=== PATIENT | female | born 2000 | race Caucasian/White ===

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

== ENCOUNTER 2019-08-30 23:30 | Emergency (ER) | payer SELFPAY ==
--- NOTE | 2019-08-30 23:37 | ED Physician Documentation ---
PD HPI LOWER EXT INJURY - Stated complaint Stated Complaint: LT LEG PAIN - History obtained from History obtained from: Patient - History of Present Illness PD HPI LOW EXT INJURY LOCATION: Left, Lower leg, Ankle Type of injury: Fall Timing - onset: How many months ago (originally fell and hurt calf muscle Dec 2018 and had ongoing pains with use/prolonged walking, stepping, etc. Hurt it again/worse May 2019 and has seen PCP and Ortho in [place]; was getting PT and has had boot orthosis with wedges for equines position. Initially 4 wedges and is down to 2 now.) Timing - duration: Months Timing - details: Abrupt onset, Still present (slowly stretching and strengthening Gastrocnemeus muscle with PT and exercises. Has had pain and nu mbness into foot/ankle. On Diclofenac, Gabapentin, and Tramadol. Got refill of Gabapentin and her Ortho in [place] wanted her to increase it. Out of Tramadol.) Worsened by: Moving Associated symptoms: Numbness, Swelling (recent travel back from [place] and has some swelling of lower leg, and notes pain has increased up to the popliteal area. Does not have PCP nor Ortho here as yet.). No: Weakness Contributing factors: No: Anticoagulated, Prior ortho surgery (but has been being treated by Ortho for gastroc tear with slow rehab and PT for it.) Review of Systems Constitutional: denies: Fever, Chills Nose: denies: Rhinorrhea / runny nose, Congestion Throat: denies: Sore throat Respiratory: denies: Cough Skin: denies: Rash, Lesions Neurologic: reports: Numbness (into ankle and foot for 3-4 months now). denies: Focal weakness PD PAST MEDICAL HISTORY - Past Medical History Cardiovascular: None Respiratory: None Neuro: None Endocrine/Autoimmune: None GI: GERD Psych: Depression, Anxiety, Bipolar disorder - Past Surgical History Past Surgical History: No - Present Medications Home Medications: Ambulatory Orders Medication Instructions Recorded Confirmed [place] Carbonate 2 cap PO DAILY PM 12/22/17 12/22/17 Lurasidone HCl [Latuda] 20 mg PO DAILY 12/22/17 12/22/17 Omeprazole 20 mg PO DAILY 12/22/17 12/22/17 Sucralfate 1 tab PO BID 12/22/17 12/22/17 Hydrocodone/Acetaminophen [[place] 1 each PO TID PRN #20 tablet 08/31/19 5-325 Tablet] - Allergies Allergies/Adverse Reactions: Allergies Allergy/AdvReac Type Severity Reaction Status Date / Time No Known Drug Allergies Allergy Verified 12/22/17 22:28 - Living Situation Living Situation: reports: With family Living Arrangement: reports: At home - Social History Does the pt smoke?: Yes Smoking Status: Current every day smoker Does the pt drink ETOH?: No Does the pt have substance abuse?: No - Immunizations Immunizations are current?: Yes - POLST Patient has POLST: No PD ED PE NORMAL - Vitals Vital signs reviewed: Yes - General General: Alert and oriented X 3, No acute distress, Well developed/nourished - Derm Derm: Normal color, Warm and dry, No rash - Extremities Extremities: Other (left calf and popliteal area with some tenderness posteriorly. Mild swelling in lower leg and ankle. Does seem to have some muscle atrophy left lower leg c/w disuse. ) - Neuro Neuro: Alert and oriented X 3, No motor deficit Results - Vitals Vitals: Vital Signs - 24 hr 08/30/19 08/31/19 08/31/19 23:30 01:00 01:46 Temperature 36.8 C Heart Rate 94 73 78 Respiratory 18 16 16 Rate Blood Pressure 113/88 H 113/82 H 121/85 H O2 Saturation 100 99 99 Oxygen O2 Source Room air - Rads (name of study) duplex left leg Radiology: Prelim report reviewed (no DVT), See rad report PD MEDICAL DECISION MAKING - ED course Complexity details: considered differential (She is continuing rehab of a gastrocnemius injury of the left leg. She had been having progressive stretching with diminishing number of wedges. She is down to 2 wedges now and was supposed to decrease to 1 but had traveled now back to [place] and had not gotten physical therapy for couple week), d/w patient ED course: She should stay at the current number of wedges in her boot orthosis and not try to stretch it more at this time until she reinitiates physical therapy and evaluation. She should continue her diclofenac. She can increase her gabapentin from 900 mg daily to 1200 mg daily (1 in the morning and afternoon and 2 at night). She had been prescribed tramadol for her pain in mid taking averaging 4-6 6 daily. I think tramadol's not a good medicine overall swell pre scribe her hydrocodone instead. Hopefully she will be able to take less with a more effective medicine and I did tell her this would be intended short-term until initiating with orthopedist and primary care here. Departure - Departure Disposition: 01 Home, Self Care Clinical Impression: Strain of left calf muscle Condition: Stable Record reviewed to determine appropriate education?: Yes Instructions: ED Strain Muscle Ext Follow-Up: Glen Ghosh MD [Provider Admit Priv/Credential] - [facility] [Provider Group] [email or web address] [Provider Group] Prescriptions: Hydrocodone/Acetaminophen [[place] 5-325 Tablet] 1 each PO TID PRN #20 tablet PRN Reason: Pain Comments: Your ultrasound is normal without any signs of blood clots. Continue your current treatment with the partial weightbearing in the boot orthosis with the 2 wedges for now. Continue the diclofenac anti-inflammatory. Increase your gabapentin to 1200 mg daily (300 mg in the morning and afternoon and 600 mg at night). Add Tylenol 500 mg 3 times a day or the hydrocodone if needed for worse pain. Follow-up with the primary care in [place], call for an appointment. Concurrently also call the orthopedic office for follow-up as well and get an appointment at their earliest times available. They will hopefully initiate you on physical therapy again. Discharge Date/Time: 08/31/19 02:01
[2019-08-31] MEDS ORDERED: HYDROcod/ACETAM 5/325 MG TABLET PO STA (00:23)
[2019-08-31 01:52] VITALS: BP 121/85
--- NOTE | 2019-08-31 08:38 | Ultrasound Report ---
PROCEDURE: Duplex Ext Veins Left INDICATIONS: left leg pain; has been in boot/travel TECHNIQUE: Real-time imaging, as well as color and pulse Doppler interrogation, were performed of the lower extr emity deep veins from the inguinal ligament to the popliteal fossa. COMPARISON: None. FINDINGS: The deep veins are normally compressible, and free of intraluminal thrombus. Color and pu lse Doppler demonstrate normal phasic intraluminal flow. There is normal augmentation response to di stal compression maneuver. IMPRESSION: Negative left lower extremity duplex ultrasound for DVT. A preliminary report with the above findings was provided at the time of the study by [facility]. Reviewed by: Ramos Gonzalez MD on 08/31/2019 7:37 AM MEL Approved by: Ramos Gonzalez MD on 08/31/2019 7:37 AM MEL Station ID: [id number]
== END 2019-08-31 02:01 | disposition home or self-care (01) ==
LOC: ED 23:30
DX: S86.912A Strain of unspecified muscle(s) and tendon(s) at lower leg level, left leg, initial encounter (principal); X58.XXXA Exposure to other specified factors, initial encounter; F17.200 Nicotine dependence, unspecified, uncomplicated
CPT/HCPCS: 93971; 99283; 99284; A9270

== ENCOUNTER 2019-11-30 17:47 | Emergency (ER) | payer MEDICAID ==
--- NOTE | 2019-11-30 18:04 | ED Physician Documentation ---
PD HPI LOWER EXT INJURY - Stated complaint Stated Complaint: RT LEG INJ - Chief complaint Chief Complaint: Ext Problem - History obtained from History obtained from: Patient - History of Present Illness PD HPI LOW EXT INJURY LOCATION: Right (Pain in R calf x 2 days. Started while in PT 2 days ago. No particular injury except overuse. Was in PT for L leg, but that is stable since injury 6 months ago.) Review of Systems Constitutional: reports: Reviewed and negative Nose: reports: Reviewed and negative Throat: reports: Reviewed and negative Cardiac: reports: Reviewed and negative PD PAST MEDICAL HISTORY - Past Medical History Cardiovascular: None Respiratory: None Neuro: None Endocrine/Autoimmune: None GI: GERD Psych: Depression, Anxiety, Bipolar disorder - Past Surgical History Past Surgical History: No - Present Medications Home Medications: Ambulatory Orders Medication Instructions Recorded Confirmed [place] Carbonate 2 cap PO DAILY PM 12/22/17 12/22/17 Lurasidone HCl [Latuda] 20 mg PO DAILY 12/22/17 12/22/17 Omeprazole 20 mg PO DAILY 12/22/17 12/22/17 Sucralfate 1 tab PO BID 12/22/17 12/22/17 Hydrocodone/Acetaminophen [[place] 1 each PO TID PRN #20 tablet 08/31/19 5-325 Tablet] Hydrocodone/Acetaminophen 1 - 2 tab PO Q6H PRN #7 tablet 11/30/19 [Hydrocodone-Acetamin 5-325 mg] Ibuprofen [Motrin] 800 mg PO Q8H PRN #30 tablet 11/30/19 - Allergies Allergies/Adverse Reactions: Allergies Allergy/AdvReac Type Severity Reaction Status Date / Time No Known Drug Allergies Allergy Verified 11/30/19 17:55 - Social History Does the pt smoke?: Yes Smoking Status: Current every day smoker Does the pt drink ETOH?: No Does the pt have substance abuse?: No - Immunizations Immunizations are current?: Yes - POLST Patient has POLST: No PD ED PE NORMAL - Vitals Vital signs reviewed: Yes - General General: Alert and oriented X 3, No acute distress - Extremities Extremities: Other (No tenderness of the right knee anteriorly. No effusion. She is tender in the right upper calf and has a positive Homans sign.) - Neuro Neuro: Alert and oriented X 3, Normal speech Results - Vitals Vitals: Vital Signs - 24 hr 09/27/20 17:51 Temperature 36.4 C L Heart Rate 84 Respiratory 16 Rate Blood Pressure 104/71 O2 Saturation 100 Oxygen O2 Source Room air - Rads (name of study) RLE DVT sono Radiology: EMP read contemporaneously (neg for dvt) PD MEDICAL DECISION MAKING - ED course ED course: Presents with history/physical most consistent with a right leg strain from overuse, no evidence of bony injury. Ultrasound done and negative to rule out DVT. Departure - Departure Disposition: 01 Home, Self Care Clinical Impression: Muscle strain, lower leg Qualifiers: Encounter type: initial encounter Laterality: right Qualified Code(s): S86.911A - Strain of unspecified muscle(s) and tendon(s) at lower leg level, right leg, initial encounter Condition: Good Record reviewed to determine appropriate education?: Yes Instructions: ED Strain Muscle Ext Prescriptions: Hydrocodone/Acetaminophen [Hydrocodone-Acetamin 5-325 mg] 1 - 2 tab PO Q6H PRN #7 tablet PRN Reason: Pain Ibuprofen [Motrin] 800 mg PO Q8H PRN #30 tablet PRN Reason: PAIN &/OR FEVER Comments: Start working with her physical therapist on this, return for new or worsening symptoms. We did an ultrasound to make sure it was not a DVT, it was not.
--- NOTE | 2019-11-30 19:23 | Ultrasound Report ---
PROCEDURE: Duplex Ext Veins Right INDICATIONS: RLE pain TECHNIQUE: Real-time imaging, as well as color and pulse Doppler interrogation, were performed of the lower extr emity deep veins from the inguinal ligament to the popliteal fossa. COMPARISON: None. FINDINGS: The deep veins are normally compressible, and free of intraluminal thrombus. Color and pu lse Doppler demonstrate normal phasic intraluminal flow. There is normal augmentation response to di stal compression maneuver. IMPRESSION: No evidence of deep vein thrombosis involving the right lower extremity. Reviewed by: Liz Bowden MD, PhD on 11/30/2019 7:21 PM PDT Approved by: Liz Bowden MD, PhD on 11/30/2019 7:21 PM PDT Station ID: [id number]
[2019-11-30] MEDS ORDERED: HYDROcod/ACET 5/325 Prepack 4 PO STA (19:25)
[2019-11-30 19:59] VITALS: BP 111/69
== END 2019-11-30 19:56 | disposition home or self-care (01) ==
LOC: ED 17:47
DX: S86.811A Strain of other muscle(s) and tendon(s) at lower leg level, right leg, initial encounter (principal); F17.200 Nicotine dependence, unspecified, uncomplicated; X58.XXXA Exposure to other specified factors, initial encounter
CPT/HCPCS: 99283; 99284

== ENCOUNTER 2020-05-02 20:22 | Outpatient (CLI) | payer MEDICAID | END 2020-05-02 20:23 | disposition EMS.NT | LOC: EMS 20:22 | DX: M79.662 Pain in left lower leg (principal); M79.661 Pain in right lower leg ==

== ENCOUNTER 2020-06-30 08:00 | Outpatient (CLI) | payer MEDICAID ==
--- NOTE | 2020-06-30 19:19 | XRAY Report ---
PROCEDURE: Foot 3 View RT INDICATIONS: RIGHT FOOT PAIN TECHNIQUE: 3 views of the foot were acquired. COMPARISON: None FINDINGS: Bones: No fractures or dislocations. No suspicious bony lesions. Soft tissues: No tibiotalar joint effusion. Achilles tendon appears normal. IMPRESSION: No acute finding. Reviewed by: Jovi Baker MD on 06/30/2020 7:18 PM PDT Approved by: Jovi Baker MD on 06/30/2020 7:18 PM PDT Station ID: [id number]
== END 2020-06-30 23:59 | disposition home or self-care (01) ==
LOC: DI.S 08:00
PROVIDERS: ATTEND Physician Assistant Medical
DX: M79.671 Pain in right foot (principal)

== ENCOUNTER 2020-07-03 08:28 | Emergency (ER) | payer MEDICAID ==
[2020-07-03] MEDS ORDERED: DEXAMETHASONE 10 MG/ML VIAL IVP STA (09:10)
[2020-07-03] MEDS ORDERED: SODIUM CHLORIDE 0.9% 1,000 ML IV STA (09:10)
--- NOTE | 2020-07-03 09:18 | ED Physician Documentation ---
History of Present Illness - Stated complaint Stated Complaint: RT/LFT LEG PAIN - Chief complaint Chief Complaint: Ext Problem - History obtained from History obtained from: Patient - History of Present Illness Timing: How many weeks ago (2) - Additonal information Additional information: 19 y/o female with a history of left calf cramping/weakness that started in Dec reports that she has undergone physical therapy for this "injury" from overuse hiking. She continues to have symptoms and reports that she was at bed rest for 5 months before moving to [facility] and starting physical therapy. She has not had imaging done. She reports that physical therapy was successful in improving her ability to walk and she discontinued several months ago and did we ll for about 2 months but recently she has developed symptoms again and they are now in the right foot and the patient has been in to see her primary and has been placed into a splint on the right foot. Review of Systems Constitutional: denies: Fever Eyes: denies: Decreased vision Ears: denies: Ear pain Nose: denies: Congestion Throat: denies: Sore throat Respiratory: denies: Cough GI: denies: Vomiting : denies: Dysuria Skin: denies: Rash Musculoskeletal: reports: Extremity pain. denies: Neck pain, Back pain Neurologic: reports: Focal weakness, Numbness. denies: Generalized weakness, Difficulty speaking, Near syncope, Confused, Altered mental status, Headache, Head injury PD PAST MEDICAL HISTORY - Past Medical History Cardiovascular: None Respiratory: None Neuro: None Endocrine/Autoimmune: None GI: GERD Psych: Depression, Anxiety, Bipolar disorder - Past Surgical History Past Surgical History: No - Present Medications Home Medications: Ambulatory Orders Medication Instructions Recorded Confirmed Cyclobenzaprine [Flexeril] 10 mg PO TID PRN #20 tablet 07/03/20 - Allergies Allergies/Adverse Reactions: Allergies Allergy/AdvReac Type Severity Reaction Status Date / Time No Known Drug Allergies Allergy Verified 07/03/20 08:40 - Social History Does the pt smoke?: Yes Smoking Status: Current every day smoker Does the pt drink ETOH?: No Does the pt have substance abuse?: No - Immunizations Immunizations are current?: Yes - POLST Patient has POLST: No PD ED PE NORMAL - Vitals Vital signs reviewed: Yes (tachy ) - General General: Alert and oriented X 3, No acute distress, Well developed/nourished - HEENT HEENT: Atraumatic, PERRL, EOMI - Respiratory Respiratory: No respiratory distress - Back Back: No CVA TTP, No spinal TTP, Other (There is no significant spasm to the lumbar paraspinous muscles but there is some tenderness to the siatic notch bilaterally. ) - Derm Derm: Normal color, Warm and dry, No rash - Extremities Extremities: No deformity, No edema, Other (No tenderness to the foot, ankle or calf bilaterally. The left calf is 1cm smaller than the right. distal n/v is intact. ) - Neuro Neuro: Alert and oriented X 3, machine hostler 2-12 intact, No motor deficit, No sensory deficit, Normal speech Eye Opening: Spontaneous Motor: Obeys Commands Verbal: Oriented GCS Score: 15 - Psych Psych: Normal mood, Normal affect Results - Vitals Vitals: Vital Signs - 24 hr 07/03/20 07/03/20 08:34 09:29 Temperature 37.2 C Heart Rate 113 H 78 Respiratory 16 16 Rate Blood Pressure 128/69 132/81 H O2 Saturation 99 100 Oxygen O2 Source Room air - Labs Labs: Laboratory Tests 07/03/20 07/03/20 07/03/20 09:18 09:18 09:18 WBC 8.4 RBC 4.57 Hgb 13.7 Hct 41.5 MCV 90.8 MCH 30.0 MCHC 33.0 RDW 12.5 Plt Count 187 MPV 10.5 Neut # (Auto) 5.3 Lymph # (Auto) 2.5 [place] # (Auto) 0.6 Eos # (Auto) 0.0 Baso # (Auto) 0.0 Absolute Nucleated RBC 0.00 Nucleated RBC % 0.0 Sodium 137 Potassium 3.5 Chloride 103 Carbon Dioxide 24 Anion Gap 10.0 BUN 15 Creatinine 0.7 Estimated GFR (MDRD) 107 Glucose 107 H Calcium 9.6 Total Bilirubin 0.8 AST 15 ALT 12 Alkaline Phosphatase 37 L Total Protein 7.6 Albumin 5.0 Globulin 2.6 Albumin/Globulin Ratio 1.9 Lipase 22 TSH 3.78 Procedures - IVC sono (time) 0900 Bedside IVC sono: IVC measures (cm) (1.4), IVC collapsed c insp (cm) (complete), Dehydration (est 500ml deficit.) PD MEDICAL DECISION MAKING - ED course Complexity details: considered differential, d/w patient ED course: 19-year-old female with a year and half long story of lower extremity weakness and paralysis and spasm that has been diagnosis of peripheral musculoskeletal injury does not appear to have responded to appropriate treatment with physical therapy and time. I became concerned for the patient's periodic paralysis and possibility of electrolyte abnormality contributing to this and we taylor blood without findings. She was also found to be minimally dehydrated about the order of morning dehydration and IV fluid was administered. I do not believe this has anything to do with the patient's presentation. I suspect the patient may have spinal stenosis and she is administered dexamethasone 10 mg intravenously and we will refer her back to her primary for advanced imaging. She has some improvement in her ability to flex her toes while in the ED . Departure - Departure Disposition: 01 Home, Self Care Clinical Impression: Bilateral sciatica Condition: Stable Instructions: ED Sciatica Follow-Up: NICOLA RIVERA PA-C [Primary Care Provider] - Prescriptions: Cyclobenzaprine [Flexeril] 10 mg PO TID PRN #20 tablet PRN Reason: Spasms Comments: Today it appears that your weakness and numbness in your leg is likely due to to a problem with your back. Advanced imaging is indicated and an MRI of your back can be ordered by your primary care doctor. Follow-up with Mello Rivera and complete this advanced imaging. Further treatment in the form of steroid, s teroid epidural injection or surgery may be indicated
[2020-07-03 09:28] LABS: BASOPHILS % (AUTO) 0.4 %; EOSINOPHILS % (AUTO) 0.5 %; HCT - HEMATOCRIT 41.5 % (37.0-47.0); HGB - HEMOGLOBIN 13.7 g/dL (12.0-16.0); LYMPHOCYTES # (AUTO) 2.5 10^3/uL (1.5-3.5); LYMPHOCYTES % (AUTO) 29.3 %; MEAN CORPUSCULAR VOLUME 90.8 fL (81.0-99.0); MEAN PLATELET VOLUME 10.5 fL (7.9-10.8); MONOCYTES # (AUTO) 0.6 10^3/uL (0.0-1.0); NEUTROPHILS # (AUTO) 5.3 10^3/uL (1.5-6.6); NEUTROPHILS % (AUTO) 62.7 %; PLT - PLATELET COUNT 187 10^3/uL (130-450); RED BLOOD COUNT 4.57 10^6/uL (4.20-5.40); RED CELL DISTRIBUTION WIDTH 12.5 % (12.0-15.0); WHITE BLOOD COUNT 8.4 x10^3/uL (4.8-10.8)
[2020-07-03 09:39] LABS: ALBUMIN/GLOBULIN RATIO 1.9 (1.0-2.2); BILIRUBIN,TOTAL 0.8 mg/dL (0.2-1.0); CALCIUM 9.6 mg/dL (8.5-10.3); CREATININE 0.7 mg/dL (0.4-1.0); POTASSIUM 3.5 mmol/L (3.5-5.0); TOTAL PROTEIN 7.6 g/dL (6.7-8.2)
[2020-07-03 10:40] VITALS: BP 138/77
[2020-07-03 10:51] LABS: BILIRUBIN,URINE NEGATIVE (NEGATIVE); GLUCOSE, URINE (UA) NEGATIVE (NEGATIVE); KETONES,URINE (UA) 15 mg/dL (NEGATIVE); LEUKOCYTE ESTERASE, URINE NEGATIVE (NEGATIVE); NITRITE,URINE NEGATIVE (NEGATIVE); OCCULT BLOOD,URINE NEGATIVE (NEGATIVE); PH,URINE 5.5 PH (5.0-7.5); PROTEIN,URINE NEGATIVE (NEGATIVE); UROBILINOGEN,URINE 0.2 (NORMAL) E.U./dL (NORMAL)
[2020-07-03 10:52] LABS: CLARITY,URINE CLEAR (CLEAR)
[2020-07-03 10:53] LABS: HCG UR QUAL NEGATIVE
== END 2020-07-03 10:56 | disposition home or self-care (01) ==
LOC: ED 08:28
DX: M54.32 Sciatica, left side (principal); M54.31 Sciatica, right side; F17.200 Nicotine dependence, unspecified, uncomplicated; E86.0 Dehydration
CPT/HCPCS: 36415; 80053; 81001; 81003; 81025; 83690; 84443; 85025; 87086; 96361; 96374; 99283

== ENCOUNTER 2020-07-06 12:47 | Outpatient (CLI) | payer MEDICAID ==
--- NOTE | 2020-07-06 16:55 | XRAY Report ---
PROCEDURE: Lumbar Spine Complete INDICATIONS: LEG CRAMPS, BILATERAL, SCIATICA, CHRONIC, NEVER PA TECHNIQUE: 4 views of the lumbar spine were acquired. COMPARISON: None. FINDINGS: Bones: 5 [id number] vertebrae are present. There is trace retrolisthesis of L1 on L2, L2 on L3 , L3 on L4, L4 on L5. Pars defect is noted at L5. No vertebral body compression fractures. No suspic ious bony lesions. Soft tissues: Overlying bowel gas pattern is normal. No suspicious soft tissue calcifications. IMPRESSION: Pars defect at L5 without anterior or retrolisthesis at this level. Reviewed by: Lola Kramer MD on 07/06/2020 4:53 PM PDT Approved by: Lola Kramer MD on 07/06/2020 4:53 PM PDT Station ID: [id number]
== END 2020-07-06 12:48 | disposition home or self-care (01) ==
LOC: DI.S 12:47
PROVIDERS: ATTEND Physician Assistant
DX: M43.06 Spondylolysis, lumbar region (principal)

== ENCOUNTER 2020-07-28 19:32 | Emergency (ER) | payer MEDICAID ==
--- OUTSIDE RECORDS SUMMARY | 2020-07-28 19:36 | EXTERNAL MEDICAL SUMMARY RPT | Continuity of Care Document ---
:2000 Demographics Phone Unavailable Preferred Language Unknown Marital Status Unknown Lutheran Affiliation Unknown Race Unknown Ethnic Group Unknown Author Organization [place] Address [address] [place] [address] Phone Allergies Encounters Medications Problems Results
--- OUTSIDE RECORDS SUMMARY | 2020-07-28 19:42 | EXTERNAL MEDICAL SUMMARY RPT | Continuity of Care Document ---
:2000 Demographics Phone Unavailable Preferred Language Unknown Marital Status Unknown Zoroastrianism Affiliation Unknown Race Unknown Ethnic Group Unknown Author Organization [place] Address [address] [place] [address] Phone Allergies Encounters Medications Problems Results
[2020-07-28 20:00] VITALS: BP 121/87
--- NOTE | 2020-07-28 21:53 | ED Physician Documentation ---
History of Present Illness - Stated complaint Stated Complaint: LT LEG PX - Chief complaint Chief Complaint: Ext Problem - History obtained from History obtained from: Patient - History of Present Illness Timing: Chronic Pain level now: 6 Improved by: no ameliorating factors Worsened by: no exacerbating factors - Additonal information Additional information: Patient complains of left posterior calf pain. This has been a chronic problem for her, with recurrent episodes for at least the past year. She was treating released from this emergency department last month for the same complaint. She then followed up with her primary care provider, and was restarted on gabapentin 300 mg QD. She said she has had at least three ultrasounds on this leg, and they have always been negative for DVT. do you present at this time due to pain that is not controlled with her current regimen. She is also feels that her let plantarflexion has become diminished. denies recent injury. Review of Systems Constitutional: reports: Reviewed and negative Musculoskeletal: reports: Extremity pain. denies: Back pain, Joint pain, Extremity swelling, Joint swelling Neurologic: reports: Focal weakness (left foot, plantarflexion). denies: Generalized weakness, Numbness PD PAST MEDICAL HISTORY - Past Medical History Past Medical History: Yes Cardiovascular: None Respiratory: None Neuro: None Endocrine/Autoimmune: None GI: GERD Psych: Depression, Anxiety, Bipolar disorder - Past Surgical History Past Surgical History: No - Present Medications Home Medications: Ambulatory Orders Medication Instructions Recorded Confirmed Cyclobenzaprine [Flexeril] 10 mg PO TID PRN #20 tablet 07/03/20 07/28/20 Cyclobenzaprine [Flexeril] 10 mg PO TID PRN #20 tablet 07/28/20 Diclofenac Sodium [Voltaren 1 applic TOP DAILY 07/28/20 07/28/20 Arthritis Pain] Gabapentin [Gralise] 300 mg PO DAILY 07/28/20 07/28/20 - Allergies Allergies/Adverse Reactions: Allergies Allergy/AdvReac Type Severity Reaction Status Date / Time No Known Drug Allergies Allergy Verified 07/28/20 20:00 - Social History Does the pt smoke?: Yes Smoking Status: Current every day smoker Does the pt drink ETOH?: No Does the pt have substance abuse?: No - Immunizations Immunizations are current?: Yes - POLST Patient has POLST: No PD ED PE NORMAL - Vitals Vital signs reviewed: Yes - General General: Alert and oriented X 3, No acute distress, Well developed/nourished - Back Back: No spinal TTP - Extremities Extremities: No deformity, No tenderness to palpate, Normal ROM s pain, No edema, No calf tenderness / cord - Neuro Neuro: No motor deficit (5/5 bilateral dorsi/plantarflexion. pain is partially reproduced with left foot plantarflexion), No sensory deficit Results - Vitals Vitals: Oxygen O2 Source Room air PD MEDICAL DECISION MAKING - ED course Complexity details: reviewed old records, considered differential, d/w patient ED course: patient presents for complaint of left posterior calf pain that is chronic. Shes currently on gabapentin 300 mg QD, and was also taking ibuprofen. These medications have not provided adequate relief for the last few days. Shes also concerned about perception of decreased strength in left plantar flexion, although her strength on my exam is normal. There are no elements of the history nor physical exam that suggest an emergent process. there was no recent injury and she has a negative Homans sign on the left. She has a normal Calderon test. She said she has had at least three ultrasounds of this leg and they were all negative for DVT. She was prescribed Flexerio from the emergency department last month and describes some degree of improvement in her symptoms with this medication. She is out of the flexeril and a new prescription is provided tonight. I also advised her to increase her gabapentin by taking the same dose twice per day instead of once. Departure - Departure Disposition: 01 Home, Self Care Clinical Impression: Pain in extremity Condition: Good Instructions: ED Muscle Pain Leg Cramps Follow-Up: NICOLA LAM PA-C [Primary Care Provider] - Prescriptions: Cyclobenzaprine [Flexeril] 10 mg PO TID PRN #20 tablet PRN Reason: Spasms Comments: As we discussed, I recommend that you increase your gabapentin to twice per day (same dose you've been taking but twice per day instead of once per day) Discharge Date/Time: 07/28/20 23:34
[2020-07-28] MEDS ORDERED: CYCLOBENZAPRINE 10 MG TABLET PO STA (22:27)
== END 2020-07-28 23:34 | disposition home or self-care (01) ==
LOC: ED 19:32
DX: M79.662 Pain in left lower leg (principal); G89.29 Other chronic pain; F17.200 Nicotine dependence, unspecified, uncomplicated
CPT/HCPCS: 99282; 99283; A9270

== ENCOUNTER 2020-08-17 02:15 | Outpatient (CLI) | payer MEDICAID | END 2020-08-17 02:16 | disposition critical access hospital (66) | LOC: EMS 02:15 | DX: R11.10 Vomiting, unspecified (principal) | CPT/HCPCS: A0425; A0427; A0999 ==

== ENCOUNTER 2020-08-17 02:47 | Emergency (ER) | payer MEDICAID ==
[2020-08-17] MEDS ORDERED: LORazepam 2 MG/ML VIAL ONE (03:10)
[2020-08-17] MEDS ORDERED: METOCLOPRAMIDE 10 MG/2 ML VIAL ONE (03:10)
[2020-08-17] MEDS ORDERED: diphenhydrAMINE INJ 50 MG/ML VIAL ONE (03:10)
[2020-08-17 04:22] LABS: ALBUMIN 4.2 g/dL (3.2-5.5); ALBUMIN/GLOBULIN RATIO 1.8 (1.0-2.2); BILIRUBIN,TOTAL 0.7 mg/dL (0.2-1.0); CALCIUM 8.9 mg/dL (8.5-10.3); CREATININE 0.7 mg/dL (0.4-1.0); POTASSIUM 2.9 mmol/L (3.5-5.0); TOTAL PROTEIN 6.6 g/dL (6.7-8.2)
[2020-08-17 04:36] LABS: MEAN CORPUSCULAR HEMOGLOBIN 30.3 pg (27.0-31.0); MEAN CORPUSCULAR HGB CONC 34.3 g/dL (32.0-36.0); MEAN CORPUSCULAR VOLUME 88.4 fL (81.0-99.0); RED BLOOD COUNT 3.96 10^6/uL (4.20-5.40); RED CELL DISTRIBUTION WIDTH 12.4 % (12.0-15.0); WHITE BLOOD COUNT 9.6 x10^3/uL (4.8-10.8)
[2020-08-17 04:37] LABS: LYMPHOCYTES % (AUTO) 19.4 %; MEAN PLATELET VOLUME 10.2 fL (7.9-10.8); MONOCYTES % (AUTO) 8.4 %; NEUTROPHILS % (AUTO) 71.4 %; PLT - PLATELET COUNT 202 10^3/uL (130-450)
[2020-08-17] MEDS ORDERED: POTASSIUM CHLORIDE 20 MEQ TABLET PO STA ×2 (04:37→05:31)
[2020-08-17 04:38] LABS: BASOPHILS % (AUTO) 0.2 %; EOSINOPHILS % (AUTO) 0.3 %; LYMPHOCYTES # (AUTO) 1.9 10^3/uL (1.5-3.5); MONOCYTES # (AUTO) 0.8 10^3/uL (0.0-1.0); NEUTROPHILS # (AUTO) 6.8 10^3/uL (1.5-6.6)
--- NOTE | 2020-08-17 04:44 | ED Physician Documentation ---
PD HPI NVD - Stated complaint Stated Complaint: N/V - Chief complaint Chief Complaint: Abd Pain - History obtained from History obtained from: Patient, Family - History of Present Illness Timing - onset: How many days ago (3) Timing - duration: Days (3) Timing - details: Gradual onset, Still present Contributing factors: Other (canabis use) Improved by: Vomiting Worsened by: Eating Similar symptoms before: Diagnosis (gastritis) Recently seen: Other (physical therapy) - Additonal information Additional information: 20-year-old female reports a 3-day history of vomiting and inability to hold anything down. Her friend presents with her indicating that she corroborates the patient's history. The patient does state that she has started using cannabis again but only a small amount. She has been taking a lot of ibuprofen for her back pain. Review of Systems Constitutional: denies: Fever Eyes: denies: Decreased vision Ears: denies: Ear pain Nose: denies: Congestion Throat: denies: Sore throat Cardiac: denies: Chest pain / pressure, Palpitations Respiratory: denies: Dyspnea, Cough GI: reports: Nausea, Vomiting. denies: Abdominal Pain : denies: Dysuria, Frequency Skin: denies: Rash Musculoskeletal: denies: Neck pain, Back pain, Extremity pain PD PAST MEDICAL HISTORY - Past Medical History Cardiovascular: None Respiratory: None Neuro: None Endocrine/Autoimmune: None GI: GERD Psych: Depression, Anxiety, Bipolar disorder - Past Surgical History Past Surgical History: No - Present Medications Home Medications: Ambulatory Orders Medication Instructions Recorded Confirmed Cyclobenzaprine [Flexeril] 10 mg PO TID PRN #20 tablet 07/03/20 08/17/20 Cyclobenzaprine [Flexeril] 10 mg PO TID PRN #20 tablet 07/28/20 08/17/20 Diclofenac Sodium [Voltaren 1 applic TOP DAILY 07/28/20 08/17/20 Arthritis Pain] Gabapentin [Gralise] 300 mg PO DAILY 07/28/20 08/17/20 Ondansetron Odt [Zofran] 4 mg TL Q6H PRN #10 tablet 08/17/20 - Allergies Allergies/Adverse Reactions: Allergies Allergy/AdvReac Type Severity Reaction Status Date / Time No Known Drug Allergies Allergy Verified 08/17/20 04:33 - Social History Does the pt smoke?: Yes Smoking Status: Current every day smoker Does the pt drink ETOH?: No Does the pt have substance abuse?: No - Immunizations Immunizations are current?: Yes - POLST Patient has POLST: No PD ED PE NORMAL - Vitals Vital signs reviewed: Yes (Normal) - General General: Alert and oriented X 3, Well developed/nourished, Other (Patient presents to the emergency department hyperventilating and hyperkinetic. ) - HEENT HEENT: Atraumatic, PERRL, EOMI - Neck Neck: Supple, no meningeal sign, No bony TTP - Cardiac Cardiac: RRR, No murmur - Respiratory Respiratory: No respiratory distress, Clear bilaterally - Abdomen Abdomen: Normal bowel sounds, Soft, Non tender, Non distended, No organomegaly - Back Back: No CVA TTP, No spinal TTP - Derm Derm: Normal color, Warm and dry, No rash - Extremities Extremities: No deformity, No edema, Other (moving upper ext with "twitching" bilaterally with numbness to the finger tips. ) - Neuro Neuro: Alert and oriented X 3, social science professor 2-12 intact, No motor deficit, Normal speech Eye Opening: Spontaneous Motor: Obeys Commands Verbal: Oriented GCS Score: 15 - Psych Psych: Normal affect, Other (mood is anxious ) Results - Vitals Vitals: Vital Signs - 24 hr 08/17/20 08/17/20 06:35 08:00 Temperature 36.8 C Heart Rate 71 70 Respiratory 15 16 Rate Blood Pressure 98/61 100/77 O2 Saturation 99 98 Oxygen O2 Source Room air - Labs Labs: Laboratory Tests 08/17/20 08/17/20 08/17/20 03:43 03:43 06:38 WBC 9.6 RBC 3.96 L Hgb 12.0 Hct 35.0 L MCV 88.4 MCH 30.3 MCHC 34.3 RDW 12.4 Plt Count 202 MPV 10.2 Neut # (Auto) 6.8 H Lymph # (Auto) 1.9 Wayne # (Auto) 0.8 Eos # (Auto) 0.0 Baso # (Auto) 0.0 Nucleated RBC % 0.0 Sodium 140 Potassium 2.9 L Chloride 109 Carbon Dioxide 22 Anion Gap 9.0 BUN 10 Creatinine 0.7 Estimated GFR (MDRD) 106 Glucose 105 H Calcium 8.9 Total Bilirubin 0.7 AST 14 ALT 12 Alkaline Phosphatase 40 L Total Protein 6.6 L Albumin 4.2 Globulin 2.4 Albumin/Globulin Ratio 1.8 Lipase 24 Urine Color YELLOW Urine Clarity CLOUDY Urine pH 6.0 Ur Specific Ona >=1.030 H Urine Protein 30 H Urine Glucose (UA) NEGATIVE Urine Ketones 15 H Urine Occult Blood LARGE H Urine Nitrite NEGATIVE Urine Bilirubin NEGATIVE Urine Urobilinogen 0.2 (NORMAL) Ur Leukocyte Esterase NEGATIVE Urine RBC TNTC H Urine WBC 0-3 Ur Squamous Epith Cells FEW Squamous Urine Bacteria Rare Urine Mucus Few Strands Urine Culture Comments NOT INDICATED Urine HCG, Qual NEGATIVE Urine Opiates Screen NEGATIVE Ur Oxycodone Screen NEGATIVE Urine Methadone Screen NEGATIVE Ur Propoxyphene Screen NEGATIVE Ur Barbiturates Screen NEGATIVE Ur Tricyclics Screen NEGATIVE Ur Phencyclidine Scrn NEGATIVE Ur Amphetamine Screen NEGATIVE U Methamphetamines Scrn NEGATIVE U Benzodiazepines Scrn POSITIVE H Urine Cocaine Screen NEGATIVE U Cannabinoids Screen POSITIVE H PD MEDICAL DECISION MAKING - ED course Complexity details: reviewed results, re-evaluated patient, considered differential, d/w patient, d/w family ED course: Patient presents to the emergency department hyperventilating and hyperkinetic. She appears anxious and provides history indicating a problem with gastritis previously and a history concerning for some inability to use her lower extremities normally. She gives history of early alcohol use as a teenager bipolar affect of disorder and she terms "paralysis "of her legs. She has been to physical therapy for this and she has not followed up with advanced imaging. On interrogation of the inferior vena cava the patient's level of dehydration is not consistent with 3 days of no fluid. She is somewhat dehydrated and she is administered normal saline intravenously. I suspected cannabis hyperemesis and we have administered the patient's metoclopramide and Benadryl with marked improvement in her symptoms. She is found to be hypokalemic and she is administered potassium orally as well. Departure - Departure Disposition: 01 Home, Self Care Clinical Impression: Hypokalemia Vomiting Qualifiers: Vomiting type: cyclical vomiting syndrome unrelated to migraine Qualified Code(s): R11.15 - Cyclical vomiting syndrome unrelated to migraine Condition: Stable Instructions: Diet High Potassium Dc, ED Diet Vomiting Diarrhea, ED Nausea Vomiting Follow-Up: NICOLA LAM PA-C [Primary Care Provider] - Prescriptions: Ondansetron Odt [Zofran] 4 mg TL Q6H PRN #10 tablet PRN Reason: Nausea / Vomiting Discharge Date/Time: 08/17/20 08:26
[2020-08-17 06:48] LABS: MUDS CUTOFF CONCENTRATIONS CUTOFF CONC BELOW:
[2020-08-17 06:54] LABS: GLUCOSE, URINE (UA) NEGATIVE (NEGATIVE); KETONES,URINE (UA) 15 mg/dL (NEGATIVE); LEUKOCYTE ESTERASE, URINE NEGATIVE (NEGATIVE); NITRITE,URINE NEGATIVE (NEGATIVE); OCCULT BLOOD,URINE LARGE (NEGATIVE); PROTEIN,URINE 30 mg/dL (NEGATIVE); UROBILINOGEN,URINE 0.2 (NORMAL) E.U./dL (NORMAL)
[2020-08-17 07:03] LABS: CLARITY,URINE CLOUDY (CLEAR); HCG UR QUAL NEGATIVE
[2020-08-17 07:08] LABS: BILIRUBIN,URINE NEGATIVE (NEGATIVE); ICTOTEST,URINE NEGATIVE
[2020-08-17 07:18] LABS: BACTERIA,URINE Rare /HPF (None Seen); MUCUS,URINE Few Strands; RBC,URINE TNTC /HPF (0-5); SQUAMOUS EPITHELIAL CELL,UR FEW Squamous (<= Few); WBC,URINE 0-3 /HPF (0-5)
[2020-08-17 07:20] LABS: AMPHETAMINE SCREEN,URINE NEGATIVE (NEGATIVE); BARBITURATE SCREEN,UR NEGATIVE (NEGATIVE); BENZODIAZEPINES SCREEN, URINE POSITIVE (NEGATIVE); COCAINE SCREEN URINE NEGATIVE (NEGATIVE); METHADONE SCREEN, URINE NEGATIVE (NEGATIVE); METHAMPHETAMINES SCREEN, URINE NEGATIVE (NEGATIVE); OPIATE SCREEN, URINE NEGATIVE (NEGATIVE); OXYCODONE SCREEN, URINE NEGATIVE (NEGATIVE); PROPOXYPHENE SCREEN, URINE NEGATIVE (NEGATIVE); THC CANNABINOID SCREEN, URINE POSITIVE (NEGATIVE); TRICYCLIC ANTIDEPRESSANT,URINE NEGATIVE (NEGATIVE)
--- NOTE | 2020-08-17 07:38 | ED Physician Documentation ---
ED Addendum - Addendum Addendum: The urine test came back showing no obvious signs of infection. is negative. Patient states she is feeling well enough at this time to head home. She did ask about a prescription for home and I see that that has already been written. At this point we will discharge the patient in improved condition. Disposition: Discharged home in stable condition Diagnoses: 1. Intractable nausea and vomiting 2. Dehydration 08/17/20 07:37
[2020-08-17 08:26] VITALS: BP 100/77
== END 2020-08-17 08:26 | disposition home or self-care (01) ==
LOC: ED 02:47
DX: E87.6 Hypokalemia (principal); R11.15 Cyclical vomiting syndrome unrelated to migraine; E86.0 Dehydration; R06.4 Hyperventilation; F17.200 Nicotine dependence, unspecified, uncomplicated
CPT/HCPCS: 36415; 80053; 80306; 81001; 81025; 83690; 85025; 99283; A9270; J1200; J2060; J2765; 81003; 87086

== ENCOUNTER 2020-08-24 16:49 | Outpatient (CLI) | payer MEDICAID | END 2020-08-24 16:50 | disposition EMS.NT | LOC: EMS 16:49 | DX: M62.838 Other muscle spasm (principal); M79.606 Pain in leg, unspecified ==

== ENCOUNTER 2020-09-17 22:21 | Outpatient (CLI) | payer MEDICAID | END 2020-09-17 22:22 | disposition EMS.NT | LOC: EMS 22:21 | DX: F41.9 Anxiety disorder, unspecified (principal) ==

== ENCOUNTER 2021-03-10 05:27 | Emergency (ER) | payer MEDICAID ==
[2021-03-10] MEDS ORDERED: METOCLOPRAMIDE 10 MG TABLET PO STA (05:51)
[2021-03-10] MEDS ORDERED: diphenhydrAMINE 25 MG CAPSULE PO STA (05:51)
[2021-03-10] MEDS ORDERED: SODIUM CHLORIDE 0.9% 1,000 ML IV STA (06:43)
--- NOTE | 2021-03-10 06:56 | ED Physician Documentation ---
History of Present Illness - Stated complaint Stated Complaint: FEMALE ,ABD PX - Chief complaint Chief Complaint: Abd Pain - History obtained from History obtained from: Patient - Additonal information Additional information: 20-year-old woman with history of bipolar disorder not on medications, cyclic vomiting syndrome, presents with constipation with no bowel movement for the past 2 weeks, chronic nausea and vomiting acutely worsening over the past few days, sharp intermittent gradually worsening diffuse abdominal pain, and hematuria and dysuria. Patient denies fever/chills. Does endorse dizziness over the past few days as well. LMP last week. No past surgical history. Social + MJ use. Review of Systems Ten Systems: 10 systems reviewed and negative Constitutional: denies: Fever, Chills GI: reports: Abdominal Pain, Nausea, Vomiting, Constipation : reports: Dysuria, Hesitancy, Hematuria PD PAST MEDICAL HISTORY - Past Medical History Past Medical History: Yes Cardiovascular: None Respiratory: None Neuro: None Endocrine/Autoimmune: None GI: GERD Psych: Depression, Anxiety, Bipolar disorder - Past Surgical History Past Surgical History: No - Present Medications Home Medications: Ambulatory Orders Medication Instructions Recorded Confirmed Cyclobenzaprine [Flexeril] 10 mg PO TID PRN #20 tablet 07/03/20 08/17/20 Cyclobenzaprine [Flexeril] 10 mg PO TID PRN #20 tablet 07/28/20 08/17/20 Diclofenac Sodium [Voltaren 1 applic TOP DAILY 07/28/20 08/17/20 Arthritis Pain] Gabapentin [Gralise] 300 mg PO DAILY 07/28/20 08/17/20 Ondansetron Odt [Zofran] 4 mg TL Q6H PRN #10 tablet 08/17/20 - Allergies Allergies/Adverse Reactions: Allergies Allergy/AdvReac Type Severity Reaction Status Date / Time No Known Drug Allergies Allergy Verified 03/10/21 06:10 - Social History Does the pt smoke?: Yes Smoking Status: Current every day smoker Does the pt drink ETOH?: No Does the pt have substance abuse?: No - Immunizations Immunizations are current?: Yes - POLST Patient has POLST: No PD ED PE NORMAL - Vitals Vital signs reviewed: Yes - General General: Alert and oriented X 3, No acute distress, Well developed/nourished - HEENT HEENT: Atraumatic, PERRL, EOMI - Neck Neck: Supple, no meningeal sign - Cardiac Cardiac: RRR - Respiratory Respiratory: No respiratory distress, Clear bilaterally - Abdomen Abdomen: Other (diffuse discomfort to palpation) - Back Back: Other (L CVA discomfort to palpation. R CVA nontender) - Derm Derm: Normal color, Warm and dry - Extremities Extremities: No deformity - Neuro Neuro: Alert and oriented X 3, No motor deficit, No sensory deficit - Psych Psych: Normal mood, Normal affect Results - Vitals Vitals: Vital Signs - 24 hr 03/10/21 05:34 Temperature 35.4 C L Heart Rate 88 Respiratory 18 Rate Blood Pressure 137/88 H O2 Saturation 99 Oxygen O2 Source Room air PD MEDICAL DECISION MAKING - ED course ED course: 20-year-old woman presents with multiple symptoms ongoing for the past several weeks, worsening over the past few days. Symptomatic care provided and fluids and lab work ordered after patient was initially unable to urinate. Plan to endorse patient to incoming daytime MD Dr. Espinoza.
[2021-03-10 07:04] LABS: BASOPHILS % (AUTO) 0.4 %; EOSINOPHILS # (AUTO) 0.1 10^3/uL (0.0-0.7); EOSINOPHILS % (AUTO) 0.7 %; HCT - HEMATOCRIT 42.2 % (37.0-47.0); HGB - HEMOGLOBIN 14.3 g/dL (12.0-16.0); LYMPHOCYTES # (AUTO) 2.1 10^3/uL (1.5-3.5); LYMPHOCYTES % (AUTO) 21.5 %; MEAN CORPUSCULAR HEMOGLOBIN 29.9 pg (27.0-31.0); MEAN CORPUSCULAR HGB CONC 33.9 g/dL (32.0-36.0); MEAN CORPUSCULAR VOLUME 88.1 fL (81.0-99.0); MEAN PLATELET VOLUME 10.6 fL (7.9-10.8); MONOCYTES # (AUTO) 0.7 10^3/uL (0.0-1.0); MONOCYTES % (AUTO) 7.2 %; NEUTROPHILS # (AUTO) 6.7 10^3/uL (1.5-6.6); PLT - PLATELET COUNT 219 10^3/uL (130-450); RED BLOOD COUNT 4.79 10^6/uL (4.20-5.40); RED CELL DISTRIBUTION WIDTH 14.4 % (12.0-15.0); WHITE BLOOD COUNT 9.6 x10^3/uL (4.8-10.8)
[2021-03-10 07:47] LABS: ALBUMIN 4.7 g/dL (3.2-5.5); ALBUMIN/GLOBULIN RATIO 1.8 (1.0-2.2); BILIRUBIN,TOTAL 0.6 mg/dL (0.2-1.0); CALCIUM 9.7 mg/dL (8.5-10.3); CREATININE 0.7 mg/dL (0.4-1.0); POTASSIUM 3.5 mmol/L (3.5-5.0); TOTAL PROTEIN 7.3 g/dL (6.7-8.2)
[2021-03-10 08:18] VITALS: BP 130/92
[2021-03-10 08:23] LABS: BILIRUBIN,URINE NEGATIVE (NEGATIVE); GLUCOSE, URINE (UA) NEGATIVE (NEGATIVE); KETONES,URINE (UA) NEGATIVE (NEGATIVE); LEUKOCYTE ESTERASE, URINE SMALL (NEGATIVE); NITRITE,URINE POSITIVE (NEGATIVE); OCCULT BLOOD,URINE NEGATIVE (NEGATIVE); PROTEIN,URINE 30 mg/dL (NEGATIVE); UROBILINOGEN,URINE 1 (NORMAL) E.U./dL (NORMAL)
[2021-03-10 08:26] LABS: CLARITY,URINE CLEAR (CLEAR); HCG UR QUAL NEGATIVE
[2021-03-10] MEDS ORDERED: cephALEXin 250 MG CAPSULE PO STA (08:34)
[2021-03-10 08:37] LABS: BACTERIA,URINE Few /HPF (None Seen); EPITHELIAL CELLS,UR FEW Transitional /HPF (<= Few); MUCUS,URINE Few Strands; RBC,URINE 0-5 /HPF (0-5); SQUAMOUS EPITHELIAL CELL,UR MANY Squamous (<= Few); WBC CLUMPS,URINE PRESENT; WBC,URINE >25 /HPF (0-5)
--- NOTE | 2021-03-10 08:53 | ED Physician Documentation ---
ED Addendum - Addendum Addendum: 03/10/21 08:51 The patient states her nausea and pain are doing better after IV medications. She is somnolent but arousable and able to answer questions. She did ambulate to the bathroom to give a urine sample. She does states she has been having some dysuria and sometimes blood in the urine over the last week or more. Urinalysis is suggestive of a UTI at this point. We could treat it empirically based on symptoms and initial findings. She does not have any antiemetics at home. I will write her prescription for ondansetron orally and promethazine suppositories. Initially bland food today with small fluids and progress as tolerated. She is to return if not improved over the next couple of days and sooner if worse again. Disposition the patient is discharged from the emergency department stable Diagnoses: 1. Nausea and vomiting 2. Dysuria 3. Cystitis
== END 2021-03-10 09:12 | disposition home or self-care (01) ==
LOC: ED 05:27
DX: N30.91 Cystitis, unspecified with hematuria (principal); R11.2 Nausea with vomiting, unspecified; F17.200 Nicotine dependence, unspecified, uncomplicated
CPT/HCPCS: 36415; 80053; 81001; 81025; 83690; 85025; 99283; 99284; A9270; 87086

== ENCOUNTER 2021-12-18 20:41 | Outpatient (CLI) | payer MEDICAID | END 2021-12-18 20:42 | disposition critical access hospital (66) | LOC: EMS 20:41 | DX: K62.5 Hemorrhage of anus and rectum (principal) | CPT/HCPCS: A0425; A0429; A0999 ==

== ENCOUNTER 2021-12-18 21:12 | Emergency (ER) | payer MEDICAID ==
[2021-12-18 21:31] LABS: BASOPHILS % (AUTO) 0.6 %; EOSINOPHILS # (AUTO) 0.1 10^3/uL (0.0-0.7); EOSINOPHILS % (AUTO) 1.3 %; HGB - HEMOGLOBIN 12.5 g/dL (12.0-16.0); LYMPHOCYTES # (AUTO) 1.7 10^3/uL (1.5-3.5); LYMPHOCYTES % (AUTO) 24.7 %; MEAN CORPUSCULAR HEMOGLOBIN 29.6 pg (27.0-31.0); MEAN CORPUSCULAR HGB CONC 32.9 g/dL (32.0-36.0); MEAN PLATELET VOLUME 9.6 fL (7.9-10.8); MONOCYTES # (AUTO) 0.5 10^3/uL (0.0-1.0); MONOCYTES % (AUTO) 7.9 %; NEUTROPHILS # (AUTO) 4.5 10^3/uL (1.5-6.6); NEUTROPHILS % (AUTO) 65.4 %; PLT - PLATELET COUNT 230 10^3/uL (130-450); RED BLOOD COUNT 4.22 10^6/uL (4.20-5.40); RED CELL DISTRIBUTION WIDTH 12.9 % (12.0-15.0); WHITE BLOOD COUNT 6.8 x10^3/uL (4.8-10.8)
--- NOTE | 2021-12-18 21:39 | ED Physician Documentation ---
History of Present Illness - Stated complaint Stated Complaint: FEMALE /LUQ - Chief complaint Chief Complaint: Abd Pain - Additonal information Additional information: 21-year-old female presents emergency department for evaluation of what she believes is rectal bleeding. She reports that she broke her coccyx in August. She is currently on her menstrual cycle. Twice today when using the bathroom and after defecating she found that there was a lot of bright red blood that she thinks is coming from her rectal vault and not her vaginal vault. She also thinks that there was some tissue that she may have passed rectally. She denies possibility of . She also states that after a fall in August she fractured some ribs and feels that she has fluid moving in her chest. She occasionally uses an Kory wrap around her chest to help with discomfort. There have been no fevers or cough. No sergo dyspnea or hypoxia. Patient is not anticoagulated and does not take NSAIDs Review of Systems Constitutional: denies: Fever, Chills Cardiac: reports: Reviewed and negative Respiratory: reports: Reviewed and negative GI: reports: Other (Reported rectal bleeding). denies: Abdominal Pain, Nausea, Vomiting : reports: Other (currently on menstrual cycle) Skin: reports: Reviewed and negative Musculoskeletal: reports: Neck pain Neurologic: reports: Reviewed and negative PD PAST MEDICAL HISTORY - Past Medical History Cardiovascular: None Respiratory: None Neuro: None Endocrine/Autoimmune: None GI: GERD Psych: Depression, Anxiety, Bipolar disorder Musculoskeletal: Other Other Past Medical History: August Left rib fractures, broken coccyx from fall down steps - Past Surgical History Past Surgical History: No - Present Medications Home Medications: Ambulatory Orders Medication Instructions Recorded Confirmed Cyclobenzaprine [Flexeril] 10 mg PO TID PRN #20 tablet 07/03/20 08/17/20 Cyclobenzaprine [Flexeril] 10 mg PO TID PRN #20 tablet 07/28/20 08/17/20 Diclofenac Sodium [Voltaren 1 applic TOP DAILY 07/28/20 08/17/20 Arthritis Pain] Gabapentin [Gralise] 300 mg PO DAILY 07/28/20 08/17/20 Ondansetron Odt [Zofran] 4 mg TL Q6H PRN #10 tablet 08/17/20 Ondansetron Odt [Zofran] 4 mg TL Q6H PRN #20 tablet 03/10/21 Promethazine Supp [Phenergan Supp] 25 mg NE Q6H PRN #5 supp 03/10/21 cephALEXin [Keflex] 500 mg PO TID 5 Days #15 cap 03/10/21 - Allergies Allergies/Adverse Reactions: Allergies Allergy/AdvReac Type Severity Reaction Status Date / Time No Known Drug Allergies Allergy Verified 12/18/21 21:22 - Social History Does the pt smoke?: Yes Smoking Status: Current every day smoker Does the pt drink ETOH?: No Does the pt have substance abuse?: No - Immunizations Immunizations are current?: Yes - POLST Patient has POLST: No PD ED PE NORMAL - General General: Alert and oriented X 3, No acute distress - HEENT HEENT: Atraumatic - Neck Neck: Supple, no meningeal sign, No adenopathy - Cardiac Cardiac: RRR, No murmur - Respiratory Respiratory: No respiratory distress - Abdomen Abdomen: Normal bowel sounds, Soft, Non tender - Rectal Rectal: Other (Chaperoned rectal exam revealed no stool blood or mucus in the vault. No rectal fissures or tears. No obvious hemorrhoids. No stool was obtained. Nontender exam.) - Derm Derm: Normal color, Warm and dry - Extremities Extremities: No deformity - Neuro Neuro: Alert and oriented X 3, clinical audiologist 2-12 intact Eye Opening: Spontaneous Motor: Obeys Commands Verbal: Oriented GCS Score: 15 Results - Vitals Vitals: Vital Signs - 24 hr 12/18/21 21:19 Temperature 36.8 C Heart Rate 100 Respiratory 16 Rate Blood Pressure 118/85 H O2 Saturation 100 Oxygen O2 Source Room air - Labs Labs: Laboratory Tests 12/18/21 12/18/21 21:18 21:18 WBC 6.8 RBC 4.22 Hgb 12.5 Hct 38.0 MCV 90.0 MCH 29.6 MCHC 32.9 RDW 12.9 Plt Count 230 MPV 9.6 Neut # (Auto) 4.5 Lymph # (Auto) 1.7 Boyle # (Auto) 0.5 Eos # (Auto) 0.1 Baso # (Auto) 0.0 Absolute Nucleated RBC 0.00 Nucleated RBC % 0.0 Sodium 139 Potassium 3.5 Chloride 107 Carbon Dioxide 28 Anion Gap 4.0 L BUN 14 Creatinine 0.7 Estimated GFR (MDRD) 105 Glucose 103 H Calcium 9.4 Total Bilirubin 0.2 AST 18 ALT 17 Alkaline Phosphatase 43 Total Protein 6.9 Albumin 4.8 Globulin 2.1 Albumin/Globulin Ratio 2.3 H Lipase 48 - Rads (name of study) cxr Radiology: EMP read indepedently (No pneumothorax pleural effusion or obvious rib fracture identified) PD MEDICAL DECISION MAKING - ED course Complexity details: reviewed results, re-evaluated patient, considered differential, d/w patient ED course: 21-year-old female is currently on her menstrual cycle presents emergency department for concerns that when defecating today she had bright red blood per rectum. Despite being on her menstrual cycle she is quite convinced that this was rectal and not vaginal bleeding. She also reported concern because she had a coccyx fracture in August and was concerned that this fracture could have penetrated through the rectal tissue. Also reported left rib fracture in August after a fall. She feels that she has fluid in her chest though no hypoxia or dyspnea. Cardiopulmonary auscultation was entirely unremarkable. My interpretation of the x-ray is that is negative for acute focal opacity consolidations pleural effusions or obvious rib fractures. Her abdominal exam was benign. A chaperoned rectal exam also revealed no blood stool mucus within the vault. It was a nontender rectal exam with normal tone. CBC shows no anemia. Her electrolytes were without acute findings. Her hCG is negative. The patient presents excessively worried about persistent pain in the coccyx region as well as in her left rib cage. No acute findings are seen today on imaging or labs. No findings to suggest rectal bleeding on her digital rectal exam. Given normal labs and lack of abdominal tenderness we did not pursue CT imaging today. I am advising her to have very close follow-up with her primary care provider to discuss this concern. She may benefit from a colonoscopy if concerns of rectal bleeding persist into the future. Departure - Departure Clinical Impression: Rectal abnormality Condition: Stable Record reviewed to determine appropriate education?: Yes Comments: Shahnaz your chest x-ray today is normal. There is nothing to suggest old rib fractures, a pneumothorax or fluid surrounding your lungs. Your hemoglobin today is normal. Your electrolytes are normal. Your rectal exam was also normal without any blood found. I do wonder if the concern for rectal bleeding may actually have been your menstrual cycle. If you find that this persists once your menstrual cycle stops, you have any fainting episodes, severe abdominal pain or fevers then you should return immediately to the ER. However I do recommend that you have very close follow-up with your primary care provider to discuss this ED visit to see if you would benefit from a colonoscopy in the future.
[2021-12-18 21:47] LABS: ALBUMIN 4.8 g/dL (3.2-5.5); ALBUMIN/GLOBULIN RATIO 2.3 (1.0-2.2); BILIRUBIN,TOTAL 0.2 mg/dL (0.2-1.0); CALCIUM 9.4 mg/dL (8.5-10.3); CREATININE 0.7 mg/dL (0.4-1.0); POTASSIUM 3.5 mmol/L (3.5-5.0); TOTAL PROTEIN 6.9 g/dL (6.7-8.2)
[2021-12-18 22:08] LABS: HCG,QUALITATIVE BLOOD NEGATIVE
--- NOTE | 2021-12-18 22:28 | XRAY Report ---
PROCEDURE: Chest 1 View X-Ray INDICATIONS: ITS.REASON: pain after rib fx in august TECHNIQUE: One view of the chest was acquired. COMPARISON: None FINDINGS: Surgical changes and devices: None. Lungs and pleura: No pleural effusions or pneumothorax. Lungs are clear. Mediastinum: Mediastinal contours appear normal. Heart size is normal. Bones and chest wall: No suspicious bony lesions. Overlying soft tissues appear unremarkable. IMPRESSION: No acute cardiopulmonary pathology. No obvious displaced left lower rib fracture is noted. Reviewed by: Gregg Sparks MD on 12/18/2021 10:27 PM PDT Approved by: Gregg Sparks MD on 12/18/2021 10:27 PM PDT Station ID: [id number]
[2021-12-18 22:38] VITALS: BP 109/78
== END 2021-12-18 22:36 | disposition home or self-care (01) ==
LOC: EDUNIT# → ED 21:12
DX: K62.9 Disease of anus and rectum, unspecified (principal); F17.200 Nicotine dependence, unspecified, uncomplicated
CPT/HCPCS: 36415; 80053; 83690; 84703; 85025; 99282; 99284

== ENCOUNTER 2023-09-14 11:50 | Outpatient (CLI) | payer MEDICAID | END 2023-09-14 23:59 | disposition critical access hospital (66) | LOC: EMS 11:50 | DX: M79.662 Pain in left lower leg (principal); R23.8 Other skin changes; S00.81XA Abrasion of other part of head, initial encounter; Y04.0XXA Assault by unarmed brawl or fight, initial encounter; Y92.009 Unspecified place in unspecified non-institutional (private) residence as the place of occurrence of the external cause | CPT/HCPCS: A0425; A0429; A0999 ==

== ENCOUNTER 2023-09-14 12:35 | Emergency (ER) | payer MEDICAID ==
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
[2023-09-14 13:22] VITALS: BP 112/80; O2SAT 100
== END 2023-09-14 13:19 | disposition home or self-care (01) ==
LOC: EDUNIT# → ED 12:35
DX: M79.605 Pain in left leg (principal); F17.200 Nicotine dependence, unspecified, uncomplicated; Z79.899 Other long term (current) drug therapy
CPT/HCPCS: 99283